=== PATIENT | female | born 1955 | race Caucasian/White ===

== ENCOUNTER → 2016-09-08 | Outpatient (CLI) | payer SELFPAY ==
--- NOTE | 2016-09-08 17:02 | CT ---
HISTORY: Screening, hypertension Cardiac calcium scoring. Technique: Multiple axial images of the chest were obtained on a [address] from the aortic arch to the base of the heart with noncontrast prospective gating. AEC was utilized. Findings: A total calcium score of 1 is observed. The score results in less than 10% likelihood of coronary e vents given the age and sex matched cohort analysis. Minimal identifiable plaque. The patient is be tween the 0 and 25th percentile for age and sex. Surrounding soft tissues are unremarkable. There is mild thoracic spondylosis. Cholecystectomy clips are noted. IMPRESSION: Minimal identifiable plaque. Reported By:
== END ==
LOC: RAD 14:00
PROVIDERS: ATTEND Internal Medicine
DX: Z13.6 Encounter for screening for cardiovascular disorders (principal)